=== PATIENT | female | born 1980 ===

== ENCOUNTER 2020-06-05 11:49 | Emergency (ER) | payer BC ==
[~2020-06-05] VITALS: Ht 175.3 cm; Wt 98.0 kg
--- NOTE | 2020-06-05 13:06 | NUR ---
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
[2020-06-05 13:28] LABS: BASOPHILS % (AUTO) 1 % (0-1); EOSINOPHILS % (AUTO) 2 % (1-7); LYMPHOCYTES % (AUTO) 34 % (22-44); MEAN CORPUSCULAR HEMOGLOBIN 31.4 pg (27.0-34.8); MEAN CORPUSCULAR HGB CONC 33.6 g/dL (32.4-35.8); MEAN PLATELET VOLUME 8.1 fL (7.4-10.4); MONOCYTES % (AUTO) 7 % (2-9); NEUTROPHILS % (AUTO) 57 % (42-75); PLATELET COUNT 290 x10^3/uL (130-400); RED BLOOD COUNT 4.55 x10^6/uL (3.82-5.3); RED CELL DISTRIBUTION WIDTH 12.9 % (9.6-15.2)
[2020-06-05 13:29] LABS: MD NO
[2020-06-05 13:37] LABS: ANION GAP 3 mmol/L (5-15); CALCIUM 8.9 mg/dL (8.5-10.1); CHLORIDE 107 mmol/L (98-107); CREATININE 0.97 mg/dL (0.55-1.02)
--- NOTE | 2020-06-05 13:37 | NUR ---
REPORT FROM [facility] ASSUMED
--- NOTE | 2020-06-05 13:42 | NUR ---
PATIENT TESTED POSITIVE ON 05/22, AND THROUGHOUT HER COUSE SHE HAD LOSS SMELL/HEADACHES/WEAKNESS. TODAY SHE IS FEELING LIKE SWELLING FACE/NECK/FOREHEAD/THROAT. HURTS TO SWALLOW.
[2020-06-05] MEDS ORDERED: CITA10TA4 PO (13:48)
[2020-06-05] MEDS ORDERED: KETOROLAC 30 MG/1 ML ONE (14:16)
[2020-06-05 14:17] VITALS: BP 123/77
[2020-06-05] MEDS ORDERED: KETOROLAC 30 MG/1 ML IM ONE (14:30)
== END 2020-06-05 15:07 | disposition home or self-care (01) ==
LOC: ED 15:00
DX: L03.211 Cellulitis of face (principal); L04.0 Acute lymphadenitis of face, head and neck; R07.0 Pain in throat
CPT/HCPCS: 36415; 70360; 80048; 82040; 84703; 85025; 96372; 99284; J1885